=== PATIENT | male | born 1965 ===

== ENCOUNTER 2017-03-24 11:47 | Emergency (ER) | payer OTHER ==
--- NOTE | 2017-03-24 13:13 | UC ---
Skin Complaint HPI - HPI Summary HPI Summary: rash x 1 month located on both arms, hands, forearm and trunch + itchy , no new soap , detergent .... - History of Current Complaint Chief Complaint: UCSkin Stated Complaint: SKIN COMPLAINT Hx Obtained From: Patient Onset/Duration: Gradual Onset, Lasting Weeks - 4, Still Present Timing: Constant Onset Severity: Moderate Current Severity: Severe Pain Intensity: 0 Pain Scale Used: 0-10 Numeric Location: Hand (Right), Hand (Left), Other - forearms and trunck area Character: Swelling, Pruritus, Redness, Raised Aggravating Factor(s): Touch Alleviating Factor(s): Nothing Associated Signs & Symptoms: Positive: Negative - Allergy/Home Medications Allergies/Adverse Reactions: Allergies Allergy/AdvReac Type Severity Reaction Status Date / Time Acetaminophen [From Percocet] Allergy Blurred Verified 03/24/17 12:04 Vision Morphine Allergy Blurred Verified 03/24/17 12:04 Vision Oxycodone [From Percocet] Allergy Blurred Verified 03/24/17 12:04 Vision Erythromycin AdvReac GI Upset Verified 03/24/17 12:05 Home Medications: Home Medications Atorvastatin* [Lipitor*] 80 mg PO DAILY 03/24/17 [History Confirmed 03/24/17] Cyclobenzaprine TAB* [Flexeril 10 MG TAB*] 1 tab PO DAILY 03/24/17 [History Confirmed 03/24/17] Sheridan-3 Fatty Acids [Fish Oil] 1,000 mg PO BID 03/24/17 [History Confirmed 03/24] Omeprazole CAP* [Prilosec CAP* 20 MG] 20 mg PO DAILY 03/24/17 [History Confirmed 03/24/17] Ramipril CAP* [Altace CAP*] 5 mg PO DAILY 03/24/17 [History Confirmed 03/24/17] Ropinirole TAB* [Requip TAB*] 0.5 mg PO DAILY 03/24/17 [History Confirmed ] busPIRone TAB* [Buspar TAB *] 10 mg PO TID 03/24/17 [History Confirmed 03/24/17] glipiZIDE TAB* [Glucotrol TAB*] 5 mg PO DAILY 03/24/17 [History Confirmed ] metFORMIN* [Glucophage 500 MG TAB *] 1,000 mg PO BID 03/24/17 [History Confirmed 03/24/17] Review of Systems Constitutional: Negative Skin: Negative Eyes: Negative ENT: Negative Respiratory: Negative Cardiovascular: Negative Gastrointestinal: Negative Is Patient Immunocompromised?: No All Other Systems Reviewed And Are Negative: Yes PMH/Surg Hx/FS Hx/Imm Hx Endocrine History: Diabetes Cardiovascular History: Cardiac Disease - Surgical History Surgical History: Yes Surgery Procedure, Year, and Place: quad bypass 2006 - Family History Known Family History: Positive: Hypertension - Social History Alcohol Use: Rare Substance Use Type: None Smoking Status (MU): Former Smoker - Immunization History Most Recent Influenza Vaccination: not Physical Exam Triage Information Reviewed: Yes Appearance: No Pain Distress, Obese Vital Signs: Initial Vital Signs Temp 98.5 F 03/24/17 11:58 Pulse 78 03/24/17 11:58 Resp 18 03/24/17 11:58 BP 126/53 03/24/17 11:58 Pulse Ox 97 03/24/17 11:58 Vital Signs Reviewed: Yes Eyes: Positive: Conjunctiva Clear ENT: Positive: Normal ENT inspection, Hearing grossly normal, Pharynx normal Neck exam: Normal Neck: Positive: Supple, Nontender, No Lymphadenopathy Respiratory: Positive: Chest non-tender, Lungs clear, Normal breath sounds Cardiovascular: Positive: RRR, No Murmur, Pulses Normal Skin: Positive: rashes - multiple papular rash covering the hands, arm , forearm , abd Course/Dx - Diagnoses Provider Diagnoses: scabies Discharge - Discharge Plan Condition: Stable Disposition: HOME Prescriptions: Permethrin 5% CREAM* 1 applic TOPICAL SEE INSTRUCTIONS #1 tube Triamcinolone 0.1% CREAM(NF) [Kenalog Cream 0.1%(NF)] 1 applic TOPICAL BID #60 gm predniSONE TAB* [Deltasone TAB*] 40 mg PO DAILY #10 tab Patient Education Materials: Scabies (ED) Referrals: Chaparrita Sauceda [Primary Care Provider] - 7 Days
== END 2017-03-24 13:03 | disposition home or self-care (01) ==
LOC: UCCORT 11:47
DX: B86 Scabies (principal); E11.9 Type 2 diabetes mellitus without complications; Z88.1 Allergy status to other antibiotic agents; Z88.5 Allergy status to narcotic agent; Z88.6 Allergy status to analgesic agent; Z95.1 Presence of aortocoronary bypass graft; Z87.891 Personal history of nicotine dependence
CPT/HCPCS: 99202; G0463

== ENCOUNTER 2019-01-31 19:56 | Emergency (ER) | payer OTHER ==
[2019-01-31 20:15] VITALS: BP 117/58
[2019-01-31] MEDS ORDERED: Amoxicillin PO (*) 500 MG CAP PO ONE (20:37)
--- NOTE | 2019-01-31 20:42 | UC ---
UC General HPI - HPI Summary HPI Summary: 53-year-old male comes in with a chief complaint of not feeling well. He's been having crackling and is ears. His blood sugar has been quite variable in size and the 300s as low as 70s. He is a type headache. He does not use insulin. He's been having pedal edema. No measured fevers no cough or chest congestion or shortness of breath. No abdominal pain. No real change in urination. - History of Current Complaint Chief Complaint: UCGeneralIllness Stated Complaint: SWOLLEN ANKLES,DIZZY Time Seen by Provider: 01/31/19 20:08 Pain Intensity: 0 - Allergy/Home Medications Allergies/Adverse Reactions: Allergies Allergy/AdvReac Type Severity Reaction Status Date / Time MS Acetaminophen Allergy Blurred Verified 03/24/17 12:04 [From Percocet] Vision MS Morphine [Morphine] Allergy Blurred Verified 03/24/17 12:04 Vision MS Oxycodone [From Percocet] Allergy Blurred Verified 03/24/17 12:04 Vision MS Erythromycin AdvReac GI Upset Verified 03/24/17 12:05 [Erythromycin] Home Medications: Home Medications Aspirin TAB* [Aspirin 325 MG TAB*] 325 mg PO BEDTIME 01/31/19 [History Confirmed 01/31/19] Gabapentin [Neurontin] 3 tab PO TID 01/31/19 [History Confirmed 01/31/19] Pramipexole Di-HCl [Mirapex] 0.75 mg PO BEDTIME 01/31/19 [History Confirmed ] Tamsulosin CAP* [Flomax CAP*] 0.4 mg PO BEDTIME 01/31/19 [History Confirmed ] PMH/Surg Hx/FS Hx/Imm Hx Previously Healthy: Yes - BPH Endocrine History: Diabetes Cardiovascular History: Hypertension GI/ History: Gastroesophageal Reflux - Surgical History Surgical History: Yes Surgery Procedure, Year, and Place: quad bypass 2006. gallbladder. "stent in pancreas" then "removed" - Family History Known Family History: Positive: Hypertension - Social History Alcohol Use: Occasionally Substance Use Type: None Smoking Status (MU): Former Smoker Household Exposure Type: Cigarettes - Immunization History Most Recent Influenza Vaccination: not Review of Systems All Other Systems Reviewed And Are Negative: Yes Constitutional: Positive: Fatigue Skin: Positive: Negative Eyes: Positive: Negative ENT: Positive: Ear Ache Respiratory: Positive: Negative Cardiovascular: Positive: Negative Gastrointestinal: Positive: Negative Genitourinary: Positive: Negative Motor: Positive: Negative Neurovascular: Positive: Negative Musculoskeletal: Positive: Edema Neurological: Positive: Negative Psychological: Positive: Negative Is Patient Immunocompromised?: No Physical Exam Triage Information Reviewed: Yes Appearance: Well-Appearing, No Pain Distress, Well-Nourished Vital Signs: Initial Vital Signs Temp 98.7 F 01/31/19 20:06 Pulse 70 01/31/19 20:06 Resp 18 01/31/19 20:06 BP 117/58 01/31/19 20:06 Pulse Ox 97 01/31/19 20:06 Vital Signs Reviewed: Yes Eye Exam: Normal Eyes: Positive: Conjunctiva Clear ENT: Positive: Pharynx normal, TM dull - B/L WITH CLEAR FLUID AND BUBBLES BEHIND Neck: Positive: Supple Respiratory: Positive: Lungs clear, Normal breath sounds, No respiratory distress Cardiovascular: Positive: RRR Abdomen Description: Positive: Nontender, Soft. Negative: CVA Tenderness (R), CVA Tenderness (L) Musculoskeletal: Positive: Strength Intact, ROM Intact, Edema @ - B/L PEDAL, Other: - NO CALF TENDERNESS Neurological: Positive: Alert Psychological: Positive: Normal Response To Family, Age Appropriate Behavior Skin Exam: Normal Course/Dx - Course Course Of Treatment: For the pedal edema we'll check CBC CMP BNP. We will treat the serous otitis media with an antibiotic as that may be the source of the irregular blood sugars. Patient's follow-up with her primary care doctor if he worsens he should go to the emergency department. - Diagnoses Provider Diagnosis: Serous otitis media, Pedal edema, Hyperglycemia Discharge - Sign-Out/Discharge Documenting (check all that apply): Patient Departure All imaging exams completed and their final reports reviewed: No Studies - Discharge Plan Condition: Stable Disposition: HOME Prescriptions: Amoxicillin PO (*) [Amoxicillin 500 MG CAP*] 500 mg PO TID #28 cap Patient Education Materials: Leg Edema (ED), Diabetic Hyperglycemia (ED), Serous Otitis Media (ED) Referrals: Chaparrita Sauceda [Primary Care Provider] - Additional Instructions: FOLLOW UP WITH YOUR DOCTOR. GO TO THE EMERGENCY DEPARTMENT IF YOUR CONDITION WORSENS OR ANY QUESTIONS OR CONCERNS. - Billing Disposition and Condition Condition: STABLE Disposition: Home
[2019-02-01 11:38] LABS: ABS Eosinophils 0.2 10^3/ul (0-0.6); ABS Lymphocytes 1.7 10^3/ul (1.0-4.8); ABS Monocytes 0.5 10^3/ul (0-0.8); ABS Neutrophils 4.6 10^3/ul (1.5-7.7); Eosinophil % 3.3 %; Hematocrit 40 % (42-52); Hemoglobin 13.9 g/dL (14.0-18.0); Lymphocyte % 23.7 %; Mean Corpuscular HGB Conc 35 g/dL (31-36); Mean Corpuscular Hemoglobin 33 pg (27-31); Mean Corpuscular Volume 96 fL (80-94); Mean Platelet Volume 10.4 fL (7.4-10.4); Nucleated Red Blood Cells % 0.1; Platelet Count 221 10^3/uL (150-450); Red Blood Count 4.19 10^6 /uL (4.18-5.48); Red Cell Distribution Width 14 % (10-15); White Blood Count 7.1 10^3/uL (3.5-10.8)
[2019-02-01 11:44] LABS: Albumin 4.2 g/dL (3.2-5.2); Potassium 3.9 mmol/L (3.5-5.0); Total Bilirubin 0.2 mg/dL (0.2-1.0)
[2019-02-01 11:50] LABS: Albumin/Globulin Ratio 2.1 (1-3); BUN/Creatinine Ratio 17.5 (8-20); EGFR African American 97.2 (>60); EGFR Non-African American 80.4 (>60); Total Protein 6.2 g/dL (6.4-8.9)
== END 2019-01-31 21:06 | disposition home or self-care (01) ==
LOC: UCCORT 19:56
DX: H65.93 Unspecified nonsuppurative otitis media, bilateral (principal); R60.9 Edema, unspecified; E11.65 Type 2 diabetes mellitus with hyperglycemia; I10 Essential (primary) hypertension; Z87.891 Personal history of nicotine dependence
CPT/HCPCS: 36415; 80053; 83880; 85025; 99212; A9270-GY; G0463